=== PATIENT | male | born 1955 | race Caucasian/White ===

== ENCOUNTER 2023-09-30 14:18 | Outpatient (CLI) | payer BC, SELFPAY ==
--- NOTE | 2023-09-30 14:32 | CT_ITS ---
WS: [id number] CT ABDOMEN PELVIS TECHNIQUE: Contrast-enhanced CT of the abdomen and pelvis with coronal and sagittal reformatted image s. CLINICAL INFORMATION: LLQ PAIN COMPARISON: None. DLP: 616.[address] scans at [facility] use at least one of these dose optimization techniques: automated e xposure control; mA and/or kV adjustment per patient size (includes targeted exams where dose is matc hed to clinical indication); or iterative reconstruction. FINDINGS: Colonic diverticulosis. Small amount of inflammatory stranding in the LEFT lower quadrant about the d escending colon with associated diverticuli and mild colonic thickening compatible with mild acute di verticulitis. No evidence of drainable abscess or fluid collection. Colon is otherwise normal in appe arance. No evidence of high-grade small or large bowel obstruction. Normal appendix in the RIGHT lowe r quadrant. Hepatomegaly diffuse fatty filtration of the liver. Normal portal vein and splenic vein. Tiny calculus in the gallbladder. Fatty atrophy of the pancreas. Normal GE junction. Tiny fat-contain ing umbilical hernia. No herniated bowel. Adrenal glands are normal. Normal renal parenchymal enhancement. No hydronephrosis. Normal caliber ab dominal aorta. Aortic calcification. Mild prostate enlargement measuring 4.1 cm. Advanced spondylitic changes lumbar spine. Multilevel spinal canal narrowing in the lumbar spine due to disc osteophyte c omplexes and spondylitic changes. Slight retrolisthesis L4 on L5. Serpiginous sclerotic changes in th e femoral heads compatible with avascular necrosis. No femoral head collapse. IMPRESSION: 1. Mild acute diverticulitis in the LEFT lower quadrant descending colon described above. No drainab le abscess or fluid collection. 2. Diffuse fatty filtration of the liver with hepatomegaly. 3. Prominent prostate measuring 4.2 cm. Recommend correlation PSA. 4. Serpiginous sclerotic changes in the femoral heads compatible with avascular necrosis. No femoral head collapse. 5. Multilevel mild to moderate central canal stenosis in the lumbar spine. This could be further tremayne luated with MRI. 6. Tiny calculus in the gallbladder.
[2023-09-30] MEDS: iohexol 350 mg/mL 500 mL Btl (per mL) IV (14:53)
== END 2023-09-30 14:19 | disposition home or self-care (01) ==
LOC: RAD 14:19
PROVIDERS: Visit Provider Physician Assistant
DX: K57.32 Diverticulitis of large intestine without perforation or abscess without bleeding (principal); K76.0 Fatty (change of) liver, not elsewhere classified; R16.0 Hepatomegaly, not elsewhere classified; M89.9 Disorder of bone, unspecified
CPT/HCPCS: 74177; Q9967